=== PATIENT | female | born 1945 | race Hispanic/Latino ===

== ENCOUNTER 2022-06-14 08:34 | Inpatient (IN) | payer MEDICARE ==
[2022-06-12 13:04] LABS: BASOPHILS # (AUTO) 0.1 (0.0-0.1); BASOPHILS % 0.5 % (0.0-1.0); EOSINOPHILS # (AUTO) 0.1 (0.0-0.4); EOSINOPHILS % 0.8 % (0.0-6.0); HEMATOCRIT 37.7 % (34.2-44.1); HEMOGLOBIN 11.3 g/dL (12.0-16.0); LYMPHOCYTES # (AUTO) 2.5 (1.0-3.2); LYMPHOCYTES % 21.7 % (18.0-39.1); MEAN CORPUSCULAR HEMOGLOBIN 27.8 pg (28-32); MEAN CORPUSCULAR VOLUME 92.6 fL (81-99); MONOCYTES % 8.5 % (4.4-11.3); NEUTROPHILS # (AUTO) 7.8 (2.1-6.9); NEUTROPHILS % 68.2 % (38.7-80.0); PLATELET COUNT 344 x10e3/uL (140-360); RED BLOOD COUNT 4.07 x10e6/uL (3.6-5.1); RED CELL DISTRIBUTION WIDTH 13.5 % (11.7-14.4)
[2022-06-12 13:20] LABS: ANION GAP 15.1 mmol/L (8-16); CALCIUM 8.9 mg/dL (8.4-10.2); CREATININE, SERUM 1.21 mg/dL (0.57-1.11); POTASSIUM 5.1 mmol/L (3.5-5.1)
[~2022-06-14] VITALS: Ht 152.4 cm; Wt 60.8 kg
[~2022-06-14 08:34] MED LIST: ACETAMINOPHEN325 M1 PO; ATORVASTATIN CA20 MG PO; ELIQUIS5 MG PO; JANUVIA100 MG PO; METOPROLOL SUCC50 MG PO; OMEGA 3 1,0001 EACH PO; OXYBUTYNIN CHLOR5 MG PO; SYNJARDY 12.5-1 EACH PO; VITAMIN D325 MCG PO
[2022-06-14] MEDS ORDERED: PIPERACILLIN/TAZOBACTAM 3.375 GM VIAL ONE (09:03)
[2022-06-14] MEDS ORDERED: GENTAMICIN 80MG/NS 100 ML 200 ML IV ONE (09:04)
[2022-06-14] MEDS ORDERED: INSULIN REGULAR, HUMAN 100 UNIT/1 ML ONE (09:50)
[2022-06-14] MEDS ORDERED: LIDOCAINE 2% /EPINEPHRINE 20 ML SDV INJ ONE (12:29)
[2022-06-14] MEDS ORDERED: BUPIVACAINE 0.25% 30ML SDV ONE (12:30)
[2022-06-14] MEDS ORDERED: MUPIROCIN 2% OINT 22 GM TUBE ONE (12:30)
[2022-06-14] MEDS ORDERED: GENTAMICIN SULFATE 40 MG/ML 2 ML VIAL ONE (12:30)
[2022-06-14] MEDS ORDERED: METHYLENE BLUE 1% INJ 10 ML VIAL INJ ONE (12:30)
[2022-06-14] MEDS ORDERED: IOPAMIDOL 610MG/1ML 300 MG/ML VIAL IV ONE (12:31)
[2022-06-14] MEDS ORDERED: LIDOCAINE HCL 2% LOCAL INJ 5 ML SDV VIAL INJ ONE (13:02)
[2022-06-14] MEDS ORDERED: ONDANSETRON HCL INJ 2MG/ML 2ML 2 MG/ML VIAL ONE (13:02)
[2022-06-14] MEDS ORDERED: PROPOFOL IV EMULSION 10 MG/ML 20 ML VIAL ONE (13:02)
[2022-06-14] MEDS ORDERED: SEVOFLURANE INHAL SOLN 250 ML PEN BTL ONE (13:02)
[2022-06-14] MEDS ORDERED: POVIDONE IODINE 0.05% 0.05 % ML PO ONE (13:02)
[2022-06-14] MEDS ORDERED: FENTANYL CITRATE/PF 100MCG/2 ML INJ ONE (13:13)
[2022-06-14] MEDS ORDERED: FLUCONAZOLE 200 MG/100 ML 100 ML IV ONE (13:59)
[2022-06-14] MEDS ORDERED: DIPHENHYDRAMINE HCL 25 MG CAP PO PRN (14:45)
[2022-06-14] MEDS ORDERED: PHENAZOPYRIDINE HCL 100 MG TAB PO PRN (14:45)
[2022-06-14 14:56] LABS: BASOPHILS # (AUTO) 0.1 (0.0-0.1); BASOPHILS % 0.5 % (0.0-1.0); EOSINOPHILS # (AUTO) 0.1 (0.0-0.4); EOSINOPHILS % 0.7 % (0.0-6.0); HEMATOCRIT 33.6 % (34.2-44.1); HEMOGLOBIN 10.1 g/dL (12.0-16.0); LYMPHOCYTES # (AUTO) 2.6 (1.0-3.2); MEAN CORPUSCULAR HGB CONC 30.1 g/dL (31-35); MEAN CORPUSCULAR VOLUME 93.1 fL (81-99); MONOCYTES # (AUTO) 0.9 (0.2-0.8); MONOCYTES % 8.8 % (4.4-11.3); NEUTROPHILS % 62.7 % (38.7-80.0); PLATELET COUNT 273 x10e3/uL (140-360); RED BLOOD COUNT 3.61 x10e6/uL (3.6-5.1); RED CELL DISTRIBUTION WIDTH 13.5 % (11.7-14.4)
[2022-06-14] MEDS: ONDANSETRON HCL INJ 2MG/ML 2ML 2 MG/ML VIAL IV PRN ×2 (15:05→22:41)
[2022-06-14 15:11] LABS: ANION GAP 12.2 mmol/L (8-16); CALCIUM 7.9 mg/dL (8.4-10.2); CREATININE, SERUM 1.02 mg/dL (0.57-1.11); POTASSIUM 4.2 mmol/L (3.5-5.1)
[2022-06-14] MEDS: SODIUM CHLORIDE 0.9% 1000ML 1,000 ML IV SCH (16:27)
[2022-06-14] MEDS: DOCUSATE SODIUM 100 MG CAP PO SCH (16:28)
[2022-06-14 16:38] VITALS: BP 128/51
[2022-06-14 16:42] VITALS: BP 128/51
[2022-06-14] MEDS ORDERED: ACETAMINOPHEN 1000 MG/100 ML IV PRN (18:00)
[2022-06-14 20:00] VITALS: BP 134/98
[2022-06-14 22:00] VITALS: BP 134/98
[2022-06-15] VITALS (7 sets, daily range): BP systolic 117–133; BP diastolic 41–48
[2022-06-15 04:50] LABS: BASOPHILS % 0.3 % (0.0-1.0); EOSINOPHILS % 0.1 % (0.0-6.0); HEMOGLOBIN 9.2 g/dL (12.0-16.0); LYMPHOCYTES # (AUTO) 2.8 (1.0-3.2); LYMPHOCYTES % 19.7 % (18.0-39.1); MEAN CORPUSCULAR HEMOGLOBIN 28.1 pg (28-32); MEAN CORPUSCULAR HGB CONC 30.7 g/dL (31-35); MEAN CORPUSCULAR VOLUME 91.7 fL (81-99); MONOCYTES # (AUTO) 1.6 (0.2-0.8); MONOCYTES % 10.9 % (4.4-11.3); NEUTROPHILS # (AUTO) 9.8 (2.1-6.9); NEUTROPHILS % 68.6 % (38.7-80.0); PLATELET COUNT 248 x10e3/uL (140-360); RED BLOOD COUNT 3.27 x10e6/uL (3.6-5.1); RED CELL DISTRIBUTION WIDTH 13.5 % (11.7-14.4)
[2022-06-15] MEDS: SODIUM CHLORIDE 0.9% 1000ML 1,000 ML IV SCH ×3 (05:15→22:17)
[2022-06-15 05:17] LABS: ANION GAP 12.9 mmol/L (8-16); CALCIUM 7.1 mg/dL (8.4-10.2); CREATININE, SERUM 0.89 mg/dL (0.57-1.11); POTASSIUM 3.9 mmol/L (3.5-5.1)
[2022-06-15] MEDS ORDERED: DEXTROSE 50% SYRINGE 50 ML IV PRN (08:30)
[2022-06-15] MEDS: INSULIN LISPRO 100 UNIT/1 ML 3ML VIAL SQ SCH ×5 (08:47→21:00)
[2022-06-15] MEDS: DOCUSATE SODIUM 100 MG CAP PO SCH ×2 (09:05→17:23)
[2022-06-15] MEDS: METOPROLOL SUCCINATE 50 MG TAB XL PO SCH (09:07)
[2022-06-15] MEDS: FLUCONAZOLE 100 MG TAB PO SCH (09:08)
[2022-06-15] MEDS: SITAGLIPTIN 100 MG TAB PO SCH (09:08)
[2022-06-15] MEDS: OXYBUTYNIN CHLORIDE 5 MG TAB PO SCH ×2 (09:08→17:23)
[2022-06-15] MEDS: ACETAMINOPHEN/CODEINE 300MG - 30MG TAB PO PRN ×2 (11:10→22:14)
[2022-06-15] MEDS: ONDANSETRON HCL INJ 2MG/ML 2ML 2 MG/ML VIAL IV PRN (12:35)
[2022-06-15] MEDS ORDERED: ATORVASTATIN 40 MG TAB PO SCH (21:00)
[2022-06-16] VITALS: BP 117/44
[2022-06-16 04:00] VITALS: BP 116/51
[2022-06-16] MEDS: SODIUM CHLORIDE 0.9% 1000ML 1,000 ML IV SCH (05:13)
[2022-06-16 05:23] LABS: BASOPHILS # (AUTO) 0.1 (0.0-0.1); BASOPHILS % 0.4 % (0.0-1.0); EOSINOPHILS # (AUTO) 0.1 (0.0-0.4); EOSINOPHILS % 0.8 % (0.0-6.0); HEMATOCRIT 27.8 % (34.2-44.1); HEMOGLOBIN 8.8 g/dL (12.0-16.0); LYMPHOCYTES # (AUTO) 3.3 (1.0-3.2); LYMPHOCYTES % 24.6 % (18.0-39.1); MEAN CORPUSCULAR HEMOGLOBIN 28.1 pg (28-32); MEAN CORPUSCULAR HGB CONC 31.7 g/dL (31-35); MEAN CORPUSCULAR VOLUME 88.8 fL (81-99); MONOCYTES # (AUTO) 1.6 (0.2-0.8); MONOCYTES % 11.9 % (4.4-11.3); NEUTROPHILS # (AUTO) 8.4 (2.1-6.9); NEUTROPHILS % 61.7 % (38.7-80.0); PLATELET COUNT 218 x10e3/uL (140-360); RED BLOOD COUNT 3.13 x10e6/uL (3.6-5.1); RED CELL DISTRIBUTION WIDTH 13.9 % (11.7-14.4)
[2022-06-16 05:46] LABS: ANION GAP 10.6 mmol/L (8-16); CALCIUM 7.2 mg/dL (8.4-10.2); CREATININE, SERUM 0.82 mg/dL (0.57-1.11); POTASSIUM 3.6 mmol/L (3.5-5.1)
[2022-06-16] MEDS: INSULIN LISPRO 100 UNIT/1 ML 3ML VIAL SQ SCH (07:30)
[2022-06-16 07:59] VITALS: BP 124/57
[2022-06-16] MEDS: METOPROLOL SUCCINATE 50 MG TAB XL PO SCH (08:18)
[2022-06-16] MEDS: SITAGLIPTIN 100 MG TAB PO SCH (09:15)
[2022-06-16] MEDS: FLUCONAZOLE 100 MG TAB PO SCH (09:15)
[2022-06-16] MEDS: DOCUSATE SODIUM 100 MG CAP PO SCH (09:16)
[2022-06-16] MEDS: OXYBUTYNIN CHLORIDE 5 MG TAB PO SCH (09:16)
[2022-06-16 09:26] VITALS: BP 124/57
[2022-06-16 11:59] VITALS: BP 131/53
== END 2022-06-16 12:05 | disposition home or self-care (01) | DRG 748 ==
LOC: OR 08:34 → PACU V 14:11 → MED/SURG 15:19
PROVIDERS: ADMIT Urology; ATTEND Urology
PROC: 0T788ZZ Dilation of Bilateral Ureters, Via Natural or Artificial Opening Endoscopic (ICD-10-PCS; 2022-06-14)
PROC: BT141ZZ Fluoroscopy of Kidneys, Ureters and Bladder using Low Osmolar Contrast (ICD-10-PCS; 2022-06-14)
PROC: 0JUC0KZ Supplement of Pelvic Region Subcutaneous Tissue and Fascia with Nonautologous Tissue Substitute, Open Approach (ICD-10-PCS; principal; 2022-06-14 12:21)
PROC: 0UU Female Reproductive System, Supplement (ICD-10-PCS; 2022-06-14 12:21)
DX: N81.10 Cystocele, unspecified (principal); N39.0 Urinary tract infection, site not specified; I25.10 Atherosclerotic heart disease of native coronary artery without angina pectoris; Z95.1 Presence of aortocoronary bypass graft; E87.5 Hyperkalemia; E11.51 Type 2 diabetes mellitus with diabetic peripheral angiopathy without gangrene; R35.1 Nocturia; R33.8 Other retention of urine; N36.41 Hypermobility of urethra; I10 Essential (primary) hypertension; I48.0 Paroxysmal atrial fibrillation; Z79.01 Long term (current) use of anticoagulants; R31.29 Other microscopic hematuria; Z20.822 Contact with and (suspected) exposure to COVID-19; N39.3 Stress incontinence (female) (male)
CPT/HCPCS: 0223U; 36415; 71046; 74420; 80048; 82948; 83735; 85025; 87086; 87186; 94799; 99251; C1713; C1752; J1450; J1580; J1817; J2001; J2405; J2543; J3010; J7030